=== PATIENT | male | born 1985 | race Caucasian/White ===

== ENCOUNTER 2020-11-02 22:49 | Emergency (ER) | payer BC, OTHER, SELFPAY ==
[~2020-11-02] VITALS: Ht 172.7 cm; Wt 71.8 kg
[2020-11-03] MEDS ORDERED: LIDOCAINE 1% MDV 20ML VIAL SC ONE (01:25)
[2020-11-03] MEDS ORDERED: BOOSTRIX/ADACEL VACCINE (DIPHTH/PERTUSS/ACELL/TETANUS) 0.5ML SYR IM ONE (02:00)
[2020-11-03 02:38] VITALS: BP 139/72
== END 2020-11-03 02:39 | disposition home or self-care (01) ==
LOC: M ED 22:49
DX: S61.411A Laceration without foreign body of right hand, initial encounter (principal); W26.9XXA Contact with unspecified sharp object(s), initial encounter; Y92.009 Unspecified place in unspecified non-institutional (private) residence as the place of occurrence of the external cause; Y93.89 Activity, other specified; Y99.8 Other external cause status; F17.200 Nicotine dependence, unspecified, uncomplicated

== ENCOUNTER 2021-01-06 21:23 | Emergency (ER) | payer SELFPAY ==
[~2021-01-06] VITALS: Ht 172.7 cm; Wt 75.1 kg
[2021-01-06 21:23] VITALS: BP 163/100
== END 2021-01-07 01:17 | disposition left against medical advice (07) ==
LOC: M ED 21:23
DX: Z53.21 Procedure and treatment not carried out due to patient leaving prior to being seen by health care provider (principal)

== ENCOUNTER 2022-01-08 14:46 | Emergency (ER) | payer OTHER, SELFPAY ==
[~2022-01-08] VITALS: Ht 172.7 cm; Wt 95.7 kg
[2022-01-08 14:46] VITALS: BP 146/90
[2022-01-08] MEDS ORDERED: LIDOCAINE 1% MDV 20ML VIAL SC ONE (15:25)
[2022-01-08] MEDS ORDERED: CEPH500C PO (17:15)
[2022-01-08] MEDS ORDERED: CEPHALEXIN 500 MG CAP PO ONE (17:20)
== END 2022-01-08 17:43 | disposition home or self-care (01) ==
LOC: M ED 14:46
DX: S61.011A Laceration without foreign body of right thumb without damage to nail, initial encounter (principal); W26.8XXA Contact with other sharp object(s), not elsewhere classified, initial encounter; Y92.009 Unspecified place in unspecified non-institutional (private) residence as the place of occurrence of the external cause